=== PATIENT | male | born 1990 | race Caucasian/White ===

== ENCOUNTER 2019-04-29 00:28 | Emergency (ER) | payer BC, SELFPAY ==
--- NOTE | ~2019-04-29 | CT_ITS ---
EXAMINATION: CT abdomen pelvis w con DATE: 04/29/2019 03:07 INDICATION: Left upper quadrant pain TECHNIQUE: Computed tomography (CT) of the abdomen and pelvis was performed with 100 cc Omnipaque 350 intravenous contrast. The dose-length product was 487.91 mGy-cm. Automated exposure control and iter ative reconstruction technique were employed. COMPARISON: None. FINDINGS: Lung bases are unremarkable. No significant pleural or pericardial effusion. Heart size nor mal. No significant vascular abnormality. No lymphadenopathy. Nonobstructive bowel gas pattern. Moder ate colonic fecal loading. The liver, spleen, pancreas, adrenal glands and kidneys are unremarkable. Gallbladder is contracted. No free air or free fluid. Normal appendix. No acute osseous abnormality. IMPRESSION: 1. No acute abdominal abnormality. Reviewed, dictated and finalized at location A. [employer]
[2019-04-29 00:33] VITALS: BP 121/73; PULSE 69; RESP 18; TEMP 37.1; O2SAT 98
--- NOTE | 2019-04-29 01:22 | ED.ABDPAIN ---
HPI - Abdominal Pain General Chief Complaint: Abdominal Pain Stated Complaint: ABD PAIN Time Seen by Provider: 04/29/19 00:47 Source: patient Mode of arrival: ambulatory Limitations: no limitations History of Present Illness HPI narrative: The pt is a 28 y/o male who presents to the ED with c/o intermittent ABD pain that began 2 days ago. The pt states that his pain is better in the ED and currently rates it a 5/10. The pain radiates to his lower back and groin. He notes that nothing makes the pain better or worse. The pt reports a lump on his ABD, but denies N/V/D or fever. The pt's PCP is Dr. Anna Baxter. He notes that he recently received a HIDA scan but has no results back yet. He is also supposed to get an endoscopy and colonscopy in the near future. The pt has had problems with GERD, even with changes in diet and medication, but has no other medical issues. The pt has a SHx of hernia surgery when he was younger. MD elicited complaint: abdominal pain Onset (ago): day(s) (2) Pain Consistency: intermittent Radiation: back (lower) and other (groin) Exacerbating factors: nothing Relieving factors: nothing Associated symptoms: other (lump on ABD) Related Data Allergies Allergy/AdvReac Type Severity Reaction Status Date / Time No Known Allergies Allergy Verified 04/29/19 00:35 Review of Systems Review of Systems: All systems reviewed & are unremarkable except as noted in HPI and below Constitutional: Constitutional: Denies fever(s) Gastrointestinal: Gastrointestinal: Reports abdominal pain, Denies diarrhea, Denies nausea and Denies vomiting Integumentary/Breasts: Skin/Breast: Reports other (lump on ABD) [facility] Past Medical History Medical History GERD (gastroesophageal reflux disease) Surgical History Surgical History History of hernia surgery History of orthopedic surgery rt shoulder Social History Social History Smoking status: Former smoker Tobacco type: cigars Second hand tobacco smoke exposure: No Alcohol intake: never Substance use: never Substance use type: does not use Gender identity (if verbalized by the patient): Male Exam Const: General: healthy appearing and no acute distress Nutritional Appearance: well nourished HENMT: Mouth: Yes lip normal and Yes moist mucous membranes Eyes: Conjunctivae: conjunctivae normal Pupils: Equal, round and reactive pupils present Resp: Effort & Inspection: normal respiratory effort Auscultation: clear to auscultation bilaterally Cardio: Rate: regular rate Rhythm: regular rhythm GI: Inspection: other (no mass) GI Palp: Yes Soft to palpation and Yes Tenderness to palpation present (GI) (LUQ) Auscultation: normal bowel sounds Back/Spine/Pelvis: Back: other (full ROM) Skin: General skin exam: normal color, dry skin and other (warm) Neuro: General: patient oriented x3 Speech: normal speech Extrem: General: full ROM Psych: Mental Status: mental status grossly normal Affect: normal affect Course Vital Signs Vital signs: Vital Signs Temperature 37.1 C 04/29/19 00:33 Pulse Rate 69 04/29/19 00:33 Respiratory Rate 18 04/29/19 00:33 Blood Pressure 121/73 04/29/19 00:33 Pulse Oximetry 98 04/29/19 00:33 Temperature 37.1 C 04/29/19 00:33 Pulse Rate 77 04/29/19 03:48 Respiratory Rate 18 04/29/19 03:48 Blood Pressure 132/69 04/29/19 03:48 Pulse Oximetry 98 04/29/19 03:48 MDM - Abdominal Pain Differential Diagnosis Differential diagnosis: Likely abdominal pain, constipation, pancreatitis, small bowel obstruction and other (hernia) Medical Records Attestation: I reviewed the patient's medical records. Lab Data Attestation: I reviewed the patient's lab results. Result diagrams: 04/29/19 01:33 04/29/19 01:33 La
[2019-04-29 01:42] LABS: Basophils Percent Auto 0.3 % (0.2-1.2); Eosinophils Absolute Auto 0.1 K/mm3 (0-0.3); Eosinophils Percent Auto 0.8 % (0-4.4); Hemoglobin 14.6 g/dL (14.0-18.0); Immature Granulocyte Absolute 0.01 K/mm3 (0.00-0.031); Immature Granulocyte Percent A 0.1 % (0-0.5); Lymphocytes Absolute Auto 1.86 K/mm3 (0.9-3.2); Lymphocytes Percent Auto 24.3 % (18.3-44.2); Mean Corpuscular Hemoglobin 30.2 pg (26-34); Mean Corpuscular Volume 88.8 fl (80-100); Mean Platelet Volume 10.2 fl (7.4-10.4); Monocytes Absolute Auto 0.5 K/mm3 (0.1-0.6); Monocytes Percent Auto 6.5 % (2.6-8.5); Neutrophils Absolute Auto 5.2 K/mm3 (1.3-6.7); Platelet Count Result 237 k/mm3 (150-375); Red Blood Count 4.84 M/mm3 (4.6-6.20); Red Cell Distribution Width 11.9 % (11.5-14.5); White Blood Count 7.7 K/mm3 (4.5-10.0)
[2019-04-29 01:43] LABS: Add Urine Microscopic? NO; Appearance Urine Clear (Clear); Bilirubin Urine Negative (Negative); Blood Urine Negative (Negative); Color Urine Straw (Yellow); Glucose Urine UA Negative (Negative); Ketones Urine Negative (Negative); Leukocyte Esterase Ur Negative LEU/UL (Negative); Nitrate Urine Negative (Negative); Protein Urine Negative (Negative); Specific Grav Ur 1.012 (1.001-1.035); Urobilinogen Urine Negative mg/dL (<2.0)
[2019-04-29 02:05] LABS: Alanine Aminotransferase 79 U/L (4-50); Albumin Level 4.7 g/dL (3.5-5.1); Alkaline Phosphatase 50 U/L (38-126); Aspartate Amino Transferase 39 U/L (17-59); Bilirubin,Total 0.6 mg/dL (0.2-1.3); Blood Urea Nitrogen 12 mg/dL (9-20); Calcium 9.9 mg/dL (8.4-10.2); Carbon Dioxide 28 mmol/L (22-30); Chloride 101 mmol/L (98-107); Estimated Glomerular Filt Rate > 60; Glucose 88 mg/dL (75-110); Lipase 96 U/L (23-300); Potassium 3.8 mmol/L (3.4-5.0); Sodium 142 mmol/L (137-145)
[2019-04-29 03:48] VITALS: BP 132/69; PULSE 77; RESP 18; O2SAT 98
== END 2019-04-29 03:49 | disposition home or self-care (01) ==
PROVIDERS: Emergency Provider Emergency Medicine
DX: R10.13 Epigastric pain (principal); K21.9 Gastro-esophageal reflux disease without esophagitis; Z87.891 Personal history of nicotine dependence
CPT/HCPCS: 36415; 74177; 80053; 81003; 83690; 85025; 99284; Q9967

== ENCOUNTER 2019-05-08 00:54 | Day surgery (SDC) | payer BC, SELFPAY ==
[2019-05-03 12:41] VITALS: BMI 26.2
[2019-05-08 12:20] VITALS: BP 113/74; PULSE 82; RESP 16; TEMP 36.4; O2SAT 100
--- NOTE | 2019-05-08 12:29 | WPDANESEPPF ---
Anes - Initial Pre Proc Eval Procedure: Operation Date: 05/08/19 13:15 Proposed Procedures p Esophagogastroduodenoscopy & Colonoscopy - Lee Francis MD Date/Time: 05/08/19 12:29 Surgeon: Lee Francis MD Pre Op Diagnosis: GERD, Abdominal pain, nausea, vomitting Patient Data Age: 28 Gender: M Height: 6 ft 1 in Weight: 87.6 kg Last Vital Signs Temp 97.6 F 05/08/19 12:20 Pulse 82 05/08/19 12:20 Resp 16 05/08/19 12:20 BP 113/74 05/08/19 12:20 Pulse Ox 100 05/08/19 12:20 Allergies Allergy/AdvReac Type Severity Reaction Status Date / Time No Known Allergies Allergy Verified 05/08/19 12:17 Home Medications Medication Instructions Recorded Confirmed Type lansoprazole 30 mg capsule,delayed 30 mg PO DAILY #90 cap 04/03/19 05/08/19 Rx release dicyclomine 20 mg PO BID PRN #20 tablet 04/29/19 05/08/19 Rx Patient hx anesthesia problems: none Family hx anesthesia problems: none PMFSH Social History Social History Smoking status: Former smoker Tobacco type: cigars Second hand tobacco smoke exposure: No Alcohol intake: never Substance use: never Substance use type: does not use Gender identity (if verbalized by the patient): Male Anes - Eval Final PreProcedure Day of Procedure 05/08/19 12:29 Patient weight: normal Heart: regular rate and rhythm Lungs: clear to auscultation Airway: Mallampati scale class II Neurological: alert and oriented Last oral intake: >/= 8 hours ASA classification: II Emergent: no Anesthetic plan: proceed Anesthesia type and monitoring: general GIVS and standard monitoring Informed Consent: The patient's anesthetic plan and its attendant risks and benefits were discussed with the patient/family/POA. Questions were solicited and answers provided to the satisfaction of the patient/family/POA.
[2019-05-08] MEDS: LACTATED RINGERS 1,000 ML 150 ML IV CONT (12:33)
--- NOTE | 2019-05-08 13:20 | WPDHPUPDATE1 ---
History and Physical Update Update Date/Time: 05/08/19 13:20 History and Physical has been reviewed, including an updated exam of the patient. There are NO changes in the patient's condition. Risks, benefits, and alternatives have been discussed and questions answered. Patient agrees to proceed with procedure.
[2019-05-08 13:55] VITALS: BP 90/62; PULSE 75; RESP 20; O2SAT 96
[2019-05-08 14:05] VITALS: BP 91/58; PULSE 74; RESP 20; O2SAT 97
[2019-05-08 14:15] VITALS: BP 103/54; PULSE 66; RESP 17; O2SAT 99
== END 2019-05-08 14:29 | disposition home or self-care (01) ==
PROVIDERS: Visit Provider Internal Medicine Gastroenterology
PROC: 0DJ08ZZ Inspection of Upper Intestinal Tract, Via Natural or Artificial Opening Endoscopic (ICD-10-PCS; CPT 43235; principal; 2019-05-08 13:15)
DX: K62.5 Hemorrhage of anus and rectum (principal); K64.8 Other hemorrhoids; R10.9 Unspecified abdominal pain; R11.0 Nausea; K21.9 Gastro-esophageal reflux disease without esophagitis; Z87.891 Personal history of nicotine dependence
CPT/HCPCS: 45378; 43239; 88305; J2704; J7120

== ENCOUNTER 2020-03-27 12:21 | Emergency (ER) | payer BC, SELFPAY ==
[2020-03-27 12:30] VITALS: BP 126/72; PULSE 89; RESP 18; TEMP 36.5; O2SAT 99
--- NOTE | 2020-03-27 12:48 | ED.EAR ---
HPI - Ear Problem General Chief complaint: Ear Stated complaint: ear pain left Source: patient and RN notes reviewed Mode of arrival: ambulatory Limitations: no limitations History of Present Illness HPI Narrative: This is a 29-year-old white male who presented to urgent care with complaints of left ear pain that he had about 3 days ago. Patient noted that the pain migrated to his throat. He did take ibuprofen at home with little relief. The patient denies SOB, CP, palpitation, cough, difficulty breathing, extremity numbness, lightheadedness, dizziness, constipation, ear discharge , trauma to ear , foreign body ,diarrhea, chills, or fever. MD Complaint: ear pain Related Data Allergies Allergy/AdvReac Type Severity Reaction Status Date / Time No Known Allergies Allergy Verified 05/08/19 12:17 Review of Systems Review of Systems: All systems reviewed & are unremarkable except as noted in HPI and below PMFSH Past Medical History Medical History GERD (gastroesophageal reflux disease) Surgical History Surgical History History of hernia surgery History of orthopedic surgery rt shoulder Social History Social History Smoking status: Former smoker Tobacco type: cigars Second hand tobacco smoke exposure: No Alcohol intake: never Substance use: never Substance use type: does not use Gender identity (if verbalized by the patient): Male Exam Narrative: Exam Narrative: GENERAL: This is a well-nourished, well-developed patient, in no apparent distress. HEAD: normocephalic, atraumatic. EYES: PERRL. Sclera clear/white. Vision is grossly intact. EARS: External ears normal, auditory canals edema with erythema, TMs normal without perforation. Hearing grossly intact. NOSE: External nose normal with no obvious nasal discharge, nares without redness, no rhinorrhea. THROAT: Mucous membranes moist, posterior pharynx clear. NECK: Neck supple, non-tender without lymphadenopathy, masses or thyromegaly. CARDIOVASCULAR: Regular rate and rhythm without murmurs, gallops, or rubs. RESPIRATORY: Clear to auscultation. Breath sounds equal bilaterally. No wheezes, rales, or rhonchi. GASTROINTESTINAL: Abdomen soft, non-tender, nondistended. Bowel sounds are active. No hepato-splenomegaly, or palpable masses. No guarding. SKIN: warm, intact with no suspicious lesions or rash, good texture and turgor. NEURO: awake, alert, and oriented to person, place and time. There were no obvious focal neurologic abnormalities. Steady gait EXTREMITIES: Normal range of motion. No edema. No calf tenderness. Negative Homans sign bilaterally. BACK: Nontender without deformity or crepitance. No flank tenderness. Course Course Emergency Course: Patient will discharge home with amoxicillin Vital Signs Vital signs: Vital Signs Temperature 97.7 F 03/27/20 12:30 Pulse Rate 89 03/27/20 12:30 Respiratory Rate 18 03/27/20 12:30 Blood Pressure 126/72 03/27/20 12:30 Pulse Oximetry 99 03/27/20 12:30 Temperature 97.7 F 03/27/20 12:30 Pulse Rate 89 03/27/20 12:30 Respiratory Rate 18 03/27/20 12:30 Blood Pressure 126/72 03/27/20 12:30 Pulse Oximetry 99 03/27/20 12:30 Medical Decision Making Differential Diagnosis Differential Diagnosis: Otitis media, otitis media, sinuitis Vital Signs Vital Signs: Vital Signs Temperature 97.7 F 03/27/20 12:30 Pulse Rate 89 03/27/20 12:30 Respiratory Rate 18 03/27/20 12:30 Blood Pressure 126/72 03/27/20 12:30 Pulse Oximetry 99 03/27/20 12:30 Temperature 97.7 F 03/27/20 12:30 Pulse Rate 89 03/27/20 12:30 Respiratory Rate 18 03/27/20 12:30 Blood Pressure 126/72 03/27/20 12:30 Pulse Oximetry 99 03/27/20 12:30 Discharge Plan Discharge Clinical Impression: Otitis media Qual
== END 2020-03-27 12:55 | disposition home or self-care (01) ==
PROVIDERS: Emergency Provider Nurse Practitioner; PCP Family Medicine
DX: H66.92 Otitis media, unspecified, left ear (principal); Z87.891 Personal history of nicotine dependence; K21.9 Gastro-esophageal reflux disease without esophagitis
CPT/HCPCS: 99213; G0463

== ENCOUNTER 2022-11-03 19:28 | Emergency (ER) | payer BC, SELFPAY ==
[2022-11-03 19:31] VITALS: BP 147/87; PULSE 59; RESP 18; TEMP 36.9; O2SAT 99
--- NOTE | 2022-11-03 19:57 | ED.SKABFB ---
HPI - Skin/Abscess/Foreign Bdy General Chief complaint: Skin/Abscess/Foreign Body Stated complaint: Allergic Reaction Time Seen by Provider: 11/03/22 19:46 Source: patient and RN notes reviewed Mode of arrival: ambulatory Limitations: no limitations History of Present Illness HPI narrative: Patient presents today complaining of a 2 day history of a facial swelling with a 1 day history of rash to his bilateral arms. Believes this stems from exposure to pepperonicis when he ate pizza with his family a few days ago. Patient does have a known allergy to pepperoncicis but was unaware they were on the pizza. He has been taking 25 mg of Benadryl at night without relief of symptoms. Denies shortness of breath, difficulty swallowing. He has had a similar reaction in the past Related Data Allergies Allergy/AdvReac Type Severity Reaction Status Date / Time pepperoncini Allergy Intermediate Swelling Uncoded 11/03/22 20:01 Review of Systems Review of Systems: CONSTITUTIONAL: Denies body aches, fever, chills, or sweats. EYES: Denies visual changes, redness, or discharge. ENT: Denies rhinorrhea, congestion, sore throat, or otalgia. CARDIOVASCULAR: Denies chest pain, palpitations, or edema. RESPIRATORY: Denies cough or dyspnea. GASTROINTESTINAL: Denies abdominal pain, nausea, vomiting, or diarrhea. GENITOURINARY: Denies dysuria or hematuria. SKIN: + facial swelling, rash MUSCULOSKELETAL: Denies back pain, joint pain, or myalgia. NEUROLOGIC: Denies headache, numbness, tingling, or weakness. PSYCH: Denies depression or anxiety. [facility] Past Medical History Medical History (Updated 11/03/22 @ 20:02 by Mel Demarco, SHASHI, ) GERD (gastroesophageal reflux disease) Surgical History Surgical History History of hernia surgery History of orthopedic surgery rt shoulder Social History Social History Smoking status: Former smoker Tobacco type: cigars Second hand tobacco smoke exposure: No Alcohol intake: never Substance use: never Substance use type: does not use Living arrangements: alone Occupation/Education: occupation Gender identity (if verbalized by the patient): Male Comments At time of signature, I have reviewed and agree with nursing past medical, surgical, social and family history unless otherwise noted. Please see nursing chart for further information. There is no relevant family history pertinent to the presenting complaint Exam Narrative: GENERAL: Well-appearing, well-nourished, and in no acute distress. HEAD: Normocephalic, atraumatic. EYES: EOMI. No redness or drainage. Conjunctivae normal. ENT: Mucous membranes pink and moist. Throat normal. Uvula midline. NECK: Normal AROM. Supple. No lymphadenopathy. CHEST: No respiratory distress. Clear to auscultation. HEART: Regular rate and rhythm. No murmur appreciated. Normal peripheral pulses. EXTREMITIES: Normal range of motion. No edema. SKIN: Warm, dry. Capillary refill normal. Normal skin turgor. Mild facial swelling noted. Scattered mild tiny vesicles over the bilateral forearms. NEURO: No focal deficits. Alert and oriented x3. Gait steady. PSYCH: Normal affect. No signs of depression or anxiety. Course Course Level of Care: Express Care Visit Vital Signs Vital signs: Vital Signs Temperature 98.4 F 11/03/22 19:31 Pulse Rate 59 L 11/03/22 19:31 Respiratory Rate 18 11/03/22 19:31 Blood Pressure 147/87 H 11/03/22 19:31 Pulse Oximetry 99 11/03/22 19:31 Oxygen Delivery Room Air 11/03/22 19:31 Temperature 98.4 F 11/03/22 19:31 Pulse Rate 59 L 11/03/22 19:31 Respiratory Rate 18 11/03/22 19:31 Blood Pressure 147/87 H 11/03/22 19:31 Pulse Oximetry 99 11/03/22 19:31 Oxygen Delivery Room Air 11/03/22 19:31 Reviewed. Pt has been instructed to follow up with his PCP re
== END 2022-11-03 20:25 | disposition home or self-care (01) ==
PROVIDERS: Emergency Provider Nurse Practitioner; PCP Family Medicine
DX: T78.40XA Allergy, unspecified, initial encounter (principal); Z87.891 Personal history of nicotine dependence; K21.9 Gastro-esophageal reflux disease without esophagitis
CPT/HCPCS: 96372; 99213; G0463; J1100